=== PATIENT | male | born 1975 | race African-American/Black ===

== ENCOUNTER 2017-07-14 12:43 | Emergency (ER) | payer OTHER ==
[~2017-07-14] VITALS: Ht 170.2 cm; Wt 77.1 kg
--- NOTE | 2017-07-14 12:58 | Emergency Room Report ---
History of Present Illness General Chief Complaint: Skin Rash/Abscess Source: Patient Present Illness HPI Patient is a 41-year-old male who presented after increased skin rash for 1 week. The patient prior history of HIV. Patient had been taking Stribild. Patient was noted to have increased rash to the right side of his trunk. Patient reports having some nausea. The patient denies any productive cough. Pain was burning in nature. Allergies: Coded Allergies: CARBAMAZEPINE (Verified Allergy, Unknown, 07/14/17) FISH CONTAINING PRODUCTS (Verified Allergy, Unknown, 07/14/17) Patient History Past Medical History: see triage record Reviewed Nursing Documentation: PMH: Agreed; PSxH: Agreed Nursing Documentation-PMH Past Medical History: No History, Except For Hx Cardiac Problems: No - HIV Review of Systems All Other Systems: negative except mentioned in HPI Physical Exam Vital Signs Date Time Temp Pulse Resp B/P (MAP) Pulse Ox O2 Delivery O2 Flow Rate FiO2 07/14/17 12:46 98.3 83 20 116/79 98 Room Air 98.2 General Appearance: well appearing, no apparent distress, alert, GCS 15 Head: normocephalic, atraumatic ENT: hearing grossly normal, normal voice Neck: full range of motion, supple Respiratory: no respiratory distress, speaking full sentences Musculoskeletal: no calf tenderness Neurologic: normal inspection, alert, oriented x3, responsive, transportation mechanic III-XII nml as tested, normal gait Psychiatric: mood/affect normal Skin: other - vesicular rash to trunk in dermatomal distribution Medical Decision Making Diagnostic Impression: Primary Impression: Shingles ER Course Patient presented for skin rash. Differential diagnosis included was not limited to shingles, contact dermatitis, necrotizing fasciitis, cellulitis among others. Patient has a benign exam and does not appear to require any further imaging or laboratory testing at this time. Patient was given Zofran for nausea. The acyclovir was prescribed for shingles. The patient is advised follow-up with infectious disease. Patient is advised to keep the wounds covered and that the lesions were infectious. Last Vital Signs Date Time Temp Pulse Resp B/P (MAP) Pulse Ox O2 Delivery O2 Flow Rate FiO2 07/14/17 12:46 98.3 83 20 116/79 98 Room Air 98.2 Status: improved Disposition: HOME, SELF-CARE Condition: Stable Emery Atkinson July 14, 2017 12:58
[2017-07-14] MEDS ORDERED: ACYCLOVIR800 MG ORAL (12:59)
[2017-07-14] MEDS ORDERED: NORCO 5-325 TA1 EACH ORAL (12:59)
[2017-07-14] MEDS ORDERED: Norco 5mg/325mg tab ORAL ONE (13:00)
[2017-07-14 13:21] VITALS: BP 116/79
[2017-07-14 13:22] VITALS: BP 116/79
== END 2017-07-14 13:25 | disposition home or self-care (01) ==
LOC: EMR 13:16
DX: B02.9 Zoster without complications (principal)
CPT/HCPCS: 99282